=== PATIENT | female | born 1965 | race Caucasian/White ===

== ENCOUNTER 2016-09-05 10:23 | Observation (INO) | payer MEDICARE, OTHER, MEDICAID ==
[2016-09-05] MEDS ORDERED: Sodium Chloride 0.9% 10 ML Syringe FLUSH PRN (10:52)
--- NOTE | 2016-09-05 10:58 | EDM.PDOC ---
ED HPI GENERAL MEDICAL PROBLEM - General Chief Complaint: Chest Pain Stated Complaint: CHEST PAIN Time Seen by Provider: 09/05/16 10:35 Source of Information: Reports: Patient, Old Records History Limitations: Reports: No Limitations - History of Present Illness INITIAL COMMENTS - FREE TEXT/NARRATIVE: Missy comes in with a 3-4 day hx of L anterior chest pains that intermittently radiate into the L upper shoulder. Sxs are positional, aggravated with movement , and not associated with palpitations, sweats, or GI upset. She has a hx of chest wall pain disorder, and has had 2 injections of steroids locally for sxs relief. Her appetite is poor, feels lt headiness, and believes her K may be low. There is a remote hx of chronic ETOHism and pancreatitis, last ETOH beverage 1 week ago. She has taken no meds for sxs relief. Right Knee Pain Score (Numeric/FACES): 6 - Related Data Allergies Allergy/AdvReac Type Severity Reaction Status Date / Time hydromorphone HCl Allergy Intermediate Rash Verified 09/05/16 18:42 [From Dilaudid] adhesive tape Allergy Blisters Verified 09/05/16 18:42 erythromycin base Allergy Nausea and Verified 09/05/16 20:04 Vomiting Home Meds: Home Meds Cholecalciferol (Vitamin D3) [D3-2000] 2,000 cap PO DAILY 04/06/15 [History] Folic Acid 1 mg PO DAILY 04/06/15 [History] Gabapentin [Neurontin] 800 mg PO TID 04/06/15 [History] Multivit with Calcium,Iron,Min [Tab A Zander] 1 tab PO DAILY 04/06/15 [History] Propylene Glycol/Peg 400 [Systane 0.3-0.4% Eye Drops] 1 drop EYEBOTH Q4H PRN 07/17 [History] Thiamine [Vitamin B-1] 100 mg PO DAILY 04/06/15 [History] Omeprazole 20 mg PO BID 04/11/15 [History] DULoxetine [Cymbalta] 60 mg PO DAILY 10/08/15 [History] hydrOXYzine HCl [hydrOXYzine] 25 mg PO Q6H PRN 10/08/15 [History] Ascorbic Acid [Acerola C] 500 mg PO DAILY 09/05/16 [History] Biotin 5,000 mcg PO DAILY 09/05/16 [History] Cyanocobalamin (Vitamin B12) [Vitamin B12] 250 mcg PO DAILY 09/05/16 [History] Polyethylene Glycol 3350 [Miralax] 17 gm PO DAILY PRN 09/05/16 [History] Potassium Chloride [Potassium Chloride Solution] 20 meq PO DAILY 09/05/16 [ History] Past Medical History HEENT History: Reports: Impaired Vision Cardiovascular History: Reports: Hypertension Respiratory History: Reports: Asthma Gastrointestinal History: Reports: Cholelithiasis, GERD, Pancreatitis Other Gastrointestinal History: polyp removal but unknown part; Genitourinary History: Reports: Other (See Below) Other Genitourinary History: dribbles 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 Hematologic History: Reports: None Dermatologic History: Reports: None - Infectious Disease History Infectious Disease History: Reports: Chicken Pox, Measles, Mumps - Past Surgical History Musculoskeletal Surgical History: Reports: Arthroscopic Knee, Shoulder Surgery Social & Family History - Family History Family Medical History: Noncontributory HEENT: Reports: Other (See Below) Other HEENT [facility] History: [facility] Cardiac: Reports: Other (See Below) Other Cardiac Family History: unknown Respiratory: Reports: Other (See Below) Other Respiratory Family Hisory: unknown GI: Reports: Other (See Below) Other GI Family History: unknown OBGYN: Reports: Dysfunctional uterine bleeding Musculoskeletal: Reports: Arthritis Neurological: Reports: Other (See Below) Other Neurological Family History: unknown - Tobacco Use Smoking Status *Q: Current Every Day Smoker Years of Tobacco use: 35 Packs/Tins Daily: 2 Second Hand Smoke Exposure: No - Alcohol Use Days Per Week of Alcohol Use: 3 Number of Drinks Per Day: 3 Total Drinks Per Week: 9 - Recreational Drug Use Recreational Drug Use: No ED ROS GENERAL - Review of Systems Review Of Systems: See Below Constitutional: Reports: Malaise, Decreased Appetite HEENT: Reports: No Symptoms Respiratory: Reports: No Symptoms Cardiovascular: Reports: Chest Pain (hx chest wall pain), Lightheadedness Endocrine: Reports: No Symptoms GI/Abdominal: Reports: Decreased Appetite : Reports: No Symptoms Musculoskeletal: Reports: Other (atypical chest wall pain) Skin: Reports: No Symptoms Neurological: Reports: No Symptoms Psychiatric: Reports: No Symptoms Hematologic/Lymphatic: Reports: No Symptoms Immunologic: Reports: No Symptoms ED EXAM, GENERAL - Physical Exam Exam: See Below Exam Limited By: No Limitations General Appearance: Alert, WD/WN, No Apparent Distress, Anxious Eye Exam: Bilateral Eye: Normal Inspection, PERRL Ears: Normal External Exam Nose: Normal Inspection Throat/Mouth: Normal Inspection, Normal Oropharynx Head: Normocephalic Neck: Normal Inspection, Supple, Non-Tender, Full Range of Motion Respiratory/Chest: No Respiratory Distress, Lungs Clear, Normal Breath Sounds, No Accessory Muscle Use, Other (L anterior costochondral tendereness) Cardiovascular: Regular Rate, Rhythm, No Murmur GI/Abdominal: Normal Bowel Sounds, Soft, Non-Tender, No Organomegaly, No Distention, No Mass (Female) Exam: Deferred Rectal (Female) Exam: Deferred Back Exam: Normal Inspection, Full Range of Motion, Other (mild tenderness L shoulder girdle ) Extremities: Normal Inspection, Normal Range of Motion Neurological: Alert, Oriented, CN II-XII Intact, Normal Cognition, No Motor/ Sensory Deficits Psychiatric: Normal Affect, Normal Mood Skin Exam: Warm, Dry, Intact, Normal Color Lymphatic: No Adenopathy Course - Vital Signs Text/Narrative:: Following assession at the [facility] ED, screening labs noted K 2.0 meq/L, Mg 1.7; Cl 93; other labs noting mild elevations of LFTs; Na 132, BUN 7, Cr 0.8; nonFBS 134 mg%; Alb 2.3 gm; Hgb 13.5 gm, WBC 7,300; UA satisfactory for age. An IV wa started in the LUE, and Missy received 2 push packs of KCl 20 meq and another 40 meq in .45%NS over the next 8 hrs, and 2 mg of MgSO4 push pack. Subsequent labs noted K 2.5 meq/L and Mg 2.7 mg%. She is voiding in mod amounts, without diarrhea, and she did consume a select diet. Missy is admitted to Observation for continued K infusion overnight, and follow up labs in the am. Last Recorded V/S: Last Vital Signs Temp 36.6 C 09/05/16 14:15 Pulse 79 09/05/16 14:15 Resp 18 09/05/16 14:15 BP 130/72 09/05/16 14:15 Pulse Ox 99 09/05/16 14:15 - Orders/Labs/Meds Orders: Active Orders 24 hr Category Date Time Status Potassium Chloride 20 meq Med 09/05/16 16:45 Active Sodium Chloride 0.45% with KCl [1/2 NS with 20 mEq KCl] 1,000 ml IV ONETIME Sodium Chloride 0.9% [Normal Saline] 1,000 ml Med 09/05/16 11:00 Active IV ASDIRECTED Sodium Chloride 0.9% [Normal Saline] 1,000 ml Med 09/05/16 14:45 Active IV ASDIRECTED Sodium Chloride 0.9% [Saline Flush] Med 09/05/16 10:52 Active 10 ml FLUSH ASDIRECTED PRN Peripheral IV Insertion Adult [OM.PC] Routine Oth 09/05/16 10:52 Ordered Medication Orders Sodium Chloride (Normal Saline) 1,000 mls @ 999 mls/hr IV ASDIRECTED DAMIAN Last Infusion: 09/05/16 12:29 Dose: 400 mls/hr Admin: 09/05/16 12:09 Dose: 999 mls/hr Sodium Chloride (Normal Saline) 1,000 mls @ 400 mls/hr IV ASDIRECTED DAMIAN Last Admin: 09/05/16 14:44 Dose: 400 mls/hr Potassium Chloride 20 meq/Potassium Chloride/Sodium Chloride 1,010 mls @ 250 mls/hr IV ONETIME ONE Stop: 09/05/16 20:47 Last Admin: 09/05/16 16:50 Dose: 250 mls/hr Sodium Chloride (Saline Flush) 10 ml FLUSH ASDIRECTED PRN PRN Reason: Keep Vein Open Labs: Laboratory Tests 09/05/16 09/05/16 09/05/16 Range/Units 11:05 11:05 14:15 WBC 7.3 (4.5-12.0) X10-3/uL RBC 4.25 (3.23-5.20) x10(6)uL Hgb 13.5 (11.5-15.5) g/dL Hct 40.1 (30.0-51.3) % MCV 94.4 (80-96) fL MCH 31.9 (27.7-33.6) pg MCHC 33.8 (32.2-35.4) g/dL RDW 15.1 (11.5-15.5) % Plt Count 273 (125-369) X10(3)uL MPV 9.2 (7.4-10.4) fL Add Manual Diff Yes Neutrophils % (Manual) 71 (46-82) % Lymphocytes % (Manual) 22 (13-37) % Monocytes % (Manual) 7 (4-12) % Sodium 132 L (135-145) mmol/L Potassium 2.0 L* 2.1 L* (3.5-5.3) mmol/L Chloride 92 L D (100-110) mmol/L Carbon Dioxide 30 H (23-29) mmol/L BUN 7 (5-20) mg/dL Creatinine 0.8 (0.6-1.3) mg/dL Est Cr Clr Drug Dosing TNP Estimated GFR (MDRD) > 60 (>60) BUN/Creatinine Ratio 8.8 L (9-20) Glucose 134 H (80-116) mg/dL Calcium 8.1 L (8.6-10.2) mg/dL Magnesium (1.8-2.5) mg/dL Total Bilirubin 2.0 H (0.1-1.3) mg/dL AST 34 H D (5-27) IU/L ALT 16 D (14-26) IU/L Alkaline Phosphatase 235 H (56-112) IU/L Total Protein 6.3 (6.0-8.0) g/dL Albumin 2.3 L (3.5-5.2) g/dL Globulin 4.0 g/dL Albumin/Globulin Ratio 0.6 Urine Color (YELLOW) Urine Appearance (CLEAR) Urine pH (5.0-6.5) Ur Specific [place] (1.010-1.025) Urine Protein (NEGATIVE) mg/dL Urine Glucose (UA) (NEGATIVE) mg/dL Urine Ketones (NEGATIVE) mg/dL Urine Occult Blood (NEGATIVE) Urine Nitrite (NEGATIVE) Urine Bilirubin (NEGATIVE) Urine Urobilinogen (NEGATIVE) mg/dL Ur Leukocyte Esterase (NEGATIVE) Urine RBC (0) Urine WBC (0) Ur Squamous Epith Cells (NS,R,O) Urine Bacteria (NS) 09/05/16 09/05/16 09/05/16 Range/Units 16:05 16:05 18:25 WBC (4.5-12.0) X10-3/uL RBC (3.23-5.20) x10(6)uL Hgb (11.5-15.5) g/dL Hct (30.0-51.3) % MCV (80-96) fL MCH (27.7-33.6) pg MCHC (32.2-35.4) g/dL RDW (11.5-15.5) % Plt Count (125-369) X10(3)uL MPV (7.4-10.4) fL Add Manual Diff Neutrophils % (Manual) (46-82) % Lymphocytes % (Manual) (13-37) % Monocytes % (Manual) (4-12) % Sodium (135-145) mmol/L Potassium 2.2 L* (3.5-5.3) mmol/L Chloride (100-110) mmol/L Carbon Dioxide (23-29) mmol/L BUN (5-20) mg/dL Creatinine (0.6-1.3) mg/dL Est Cr Clr Drug Dosing Estimated GFR (MDRD) (>60) BUN/Creatinine Ratio (9-20) Glucose (80-116) mg/dL Calcium (8.6-10.2) mg/dL Magnesium 1.6 L (1.8-2.5) mg/dL Total Bilirubin (0.1-1.3) mg/dL AST (5-27) IU/L ALT (14-26) IU/L Alkaline Phosphatase (56-112) IU/L Total Protein (6.0-8.0) g/dL Albumin (3.5-5.2) g/dL Globulin g/dL Albumin/Globulin Ratio Urine Color Yellow (YELLOW) Urine Appearance Clear (CLEAR) Urine pH 7.0 H (5.0-6.5) Ur Specific [place] 1.010 (1.010-1.025) Urine Protein Negative (NEGATIVE) mg/dL Urine Glucose (UA) Normal (NEGATIVE) mg/dL Urine Ketones Negative (NEGATIVE) mg/dL Urine Occult Blood Negative (NEGATIVE) Urine Nitrite Negative (NEGATIVE) Urine Bilirubin Negative (NEGATIVE) Urine Urobilinogen Normal (NEGATIVE) mg/dL Ur Leukocyte Esterase Negative (NEGATIVE) Urine RBC 0-5 (0) Urine WBC 0-5 (0) Ur Squamous Epith Cells Moderate H (NS,R,O) Urine Bacteria Moderate H (NS) 09/05/16 Range/Units 19:33 WBC (4.5-12.0) X10-3/uL RBC (3.23-5.20) x10(6)uL Hgb (11.5-15.5) g/dL Hct (30.0-51.3) % MCV (80-96) fL MCH (27.7-33.6) pg MCHC (32.2-35.4) g/dL RDW (11.5-15.5) % Plt Count (125-369) X10(3)uL MPV (7.4-10.4) fL Add Manual Diff Neutrophils % (Manual) (46-82) % Lymphocytes % (Manual) (13-37) % Monocytes % (Manual) (4-12) % Sodium (135-145) mmol/L Potassium 2.5 L* (3.5-5.3) mmol/L Chloride (100-110) mmol/L Carbon Dioxide (23-29) mmol/L BUN (5-20) mg/dL Creatinine (0.6-1.3) mg/dL Est Cr Clr Drug Dosing Estimated GFR (MDRD) (>60) BUN/Creatinine Ratio (9-20) Glucose (80-116) mg/dL Calcium (8.6-10.2) mg/dL Magnesium 2.7 H (1.8-2.5) mg/dL Total Bilirubin (0.1-1.3) mg/dL AST (5-27) IU/L ALT (14-26) IU/L Alkaline Phosphatase (56-112) IU/L Total Protein (6.0-8.0) g/dL Albumin (3.5-5.2) g/dL Globulin g/dL Albumin/Globulin Ratio Urine Color (YELLOW) Urine Appearance (CLEAR) Urine pH (5.0-6.5) Ur Specific [place] (1.010-1.025) Urine Protein (NEGATIVE) mg/dL Urine Glucose (UA) (NEGATIVE) mg/dL Urine Ketones (NEGATIVE) mg/dL Urine Occult Blood (NEGATIVE) Urine Nitrite (NEGATIVE) Urine Bilirubin (NEGATIVE) Urine Urobilinogen (NEGATIVE) mg/dL Ur Leukocyte Esterase (NEGATIVE) Urine RBC (0) Urine WBC (0) Ur Squamous Epith Cells (NS,R,O) Urine Bacteria (NS) Meds: Medications Generic Name Dose Route Start Last Admin Trade Name Freq PRN Reason Stop Dose Admin Sodium Chloride 1,000 mls @ 999 mls/hr 09/05/16 11:00 09/05/16 12:29 Normal Saline IV 400 mls/hr ASDIRECTED DAMIAN Infusion Sodium Chloride 1,000 mls @ 400 mls/hr 09/05/16 14:45 09/05/16 14:44 Normal Saline IV 400 mls/hr ASDIRECTED DAMIAN Administration Potassium Chloride 20 meq/ 1,010 mls @ 250 mls/hr 09/05/16 16:45 09/05/16 16: 50 Potassium Chloride/Sodium IV 09/05/16 20:47 250 mls/hr Chloride ONETIME ONE Administration Sodium Chloride 10 ml 09/05/16 10:52 Saline Flush FLUSH ASDIRECTED PRN Keep Vein Open Discontinued Medications Generic Name Dose Route Start Last Admin Trade Name Freq PRN Reason Stop Dose Admin Lipase/Protease/Amylase 4 cap 09/05/16 17:30 09/05/16 17:46 Pancrelipase 5,000 PO 09/05/16 17:31 4 cap ONETIME ONE Administration Potassium Chloride 20 meq/ 100 mls @ 50 mls/hr 09/05/16 11:40 09/05/16 12:28 Premix IV 09/05/16 13:39 50 mls/hr ONETIME ONE Administration Potassium Chloride 20 meq/ 100 mls @ 50 mls/hr 09/05/16 14:34 09/05/16 14:44 Premix IV 09/05/16 16:33 50 mls/hr ONETIME ONE Administration Magnesium Sulfate 2 gm/ Premix 50 mls @ 150 mls/hr 09/05/16 16:52 09/05/16 17 :19 IV 09/05/16 17:11 150 mls/hr ONETIME ONE Administration Thiamine HCl 100 mg/ Sodium 101 mls @ 100 mls/hr 09/05/16 16:56 09/05/16 17: 05 Chloride IV 09/05/16 17:56 Not Given ONETIME ONE Thiamine HCl 100 mg 09/05/16 17:03 09/05/16 17:19 Vitamin B-1 IV 09/05/16 17:04 100 mg ONETIME ONE Administration Departure - Departure Time of Disposition: 20:15 Disposition: Refer to Observation Condition: fair Clinical Impression: Hypokalemia - Discharge Information - Problem List & Annotations (1) Atypical chest pain SNOMED Code(s): 161961847 Code(s): R07.89 - OTHER CHEST PAIN Status: Acute Current Visit: No Annotation/Comment:: Symptomatic cares, and analgesic of choice. (2) Hypokalemia SNOMED Code(s): 74075938 Code(s): E87.6 - HYPOKALEMIA Status: Acute Priority: Low Current Visit : Yes Annotation/Comment:: Probable secondary hyperaldosteronism related to abnormal LFTs may be contributing to hypokalemia, in the absence of vomiting or diarrhea. I dispensed KCl 20 meq bid x 10 days, with follow up by PCP. Depletional hypokalemia with hypomagnesia, managed with IV K replacement and MgSO4 replacement in Observation. - Problem List Review Problem List Initiated/Reviewed/Updated: Yes - My Orders Last 24 Hours: My Active Orders 09/05/16 10:52 Sodium Chloride 0.9% [Saline Flush] 10 ml FLUSH ASDIRECTED PRN Peripheral IV Insertion Adult [OM.PC] Routine 09/05/16 11:00 Sodium Chloride 0.9% [Normal Saline] 1,000 ml IV ASDIRECTED 09/05/16 14:45 Sodium Chloride 0.9% [Normal Saline] 1,000 ml IV ASDIRECTED 09/05/16 16:45 Potassium Chloride 20 meq Sodium Chloride 0.45% with KCl [1/2 NS with 20 mEq KCl] 1,000 ml IV ONETIME - Assessment/Plan Last 24 Hours: My Active Orders 09/05/16 10:52 Sodium Chloride 0.9% [Saline Flush] 10 ml FLUSH ASDIRECTED PRN Peripheral IV Insertion Adult [OM.PC] Routine 09/05/16 11:00 Sodium Chloride 0.9% [Normal Saline] 1,000 ml IV ASDIRECTED 09/05/16 14:45 Sodium Chloride 0.9% [Normal Saline] 1,000 ml IV ASDIRECTED 09/05/16 16:45 Potassium Chloride 20 meq Sodium Chloride 0.45% with KCl [1/2 NS with 20 mEq KCl] 1,000 ml IV ONETIME Plan: Admit to observation.
[2016-09-05] MEDS ORDERED: Sodium Chloride 0.9% 1,000 ML IV SCH ×2 (11:00→14:45)
[2016-09-05] MEDS ORDERED: Potassium Chloride 20 MEQ in Premix Bag 1 BAG IV ONE ×3 (11:40→20:27)
[2016-09-05] MEDS ORDERED: POTASSIUM CHLORIDE IV ONE (16:45)
[2016-09-05] MEDS ORDERED: KCL IV ONE (16:45)
[2016-09-05] MEDS ORDERED: SODIUM CHLORIDE 0.45% IV ONE (16:45)
[2016-09-05] MEDS ORDERED: Magnesium Sulfate/Water 2 GM in Premix Bag 1 BAG IV ONE (16:52)
[2016-09-05] MEDS ORDERED: Thiamine 100 MG in Sodium Chloride 0.9% 100 ML IV ONE (16:56)
[2016-09-05] MEDS ORDERED: Thiamine 200 MG/2 ML MDV IV ONE (17:03)
[2016-09-05] MEDS ORDERED: Amylase/Lipase/Protease 5,000 Unit Cap.CR PO ONE (17:30)
[2016-09-05] MEDS ORDERED: Non-Formulary Medication 1 Each (Propylene Glycol/Peg 400 [Systane 0.3-0.4% Eye Drops] 1 D EYEBOTH PRN (20:55)
[2016-09-05] MEDS ORDERED: HYDROXYZINE HCL 25 MG PO PRN (20:55)
[2016-09-05] MEDS ORDERED: Non-Formulary Medication 1 Each (Gabapentin [Neurontin] 800 MG) PO SCH (21:00)
[2016-09-05] MEDS ORDERED: Non-Formulary Medication 1 Each (Omeprazole [Omeprazole] 20 MG) PO SCH (21:00)
[2016-09-05] MEDS ORDERED: Acetaminophen 325 MG Tab PO ONE (21:02)
[2016-09-05] MEDS: NS + KCl 20mEq/L 1,000 ML IV SCH (21:13)
[2016-09-06] MEDS: NS + KCl 20mEq/L 1,000 ML IV SCH ×3 (04:03→16:56)
[2016-09-06] MEDS ORDERED: Ketorolac 30 MG/ML SDV IVPUSH PRN (08:27)
[2016-09-06] MEDS ORDERED: Potassium Chloride 20 MEQ Tab.ER PO ONE (08:27)
[2016-09-06] MEDS ORDERED: Metoclopramide 10 MG/2 ML SDV IV PRN (08:27)
--- NOTE | 2016-09-06 08:31 | PCM.HP ---
H&P History of Present Illness - General Date of Service: 09/06/16 Admit Problem/Dx: Admission Diagnosis/Problem Admission Diagnosis/Problem Hypokalemia Source of Information: Patient, Old Records History Limitations: Reports: No Limitations - History of Present Illness Initial Comments - Free Text/Narative: 51-year-old female nonspecific chest pain. This pain has been present for more than 3 months. She is being treated for chest wall pain by the pain management. She described this as tight ,going against the shoulder. It does not cause any nausea vomiting or diarrhea,shortness of breath. She came to the emergency room yesterday and was found to have hypokalemia. Despite IV replacement she was too low and admitted therefore for replacement. She has a history of chronic pain syndrome, chronic pancreatitis, history of alcohol abuse , and tobacco. Complains of decreased appetite for the last few weeks. Loose stools. Right Knee Pain Score (Numeric/FACES): 6 Chest Pain Score (Numeric/FACES): 7 - Related Data Allergies/Adverse Reactions: Allergies Allergy/AdvReac Type Severity Reaction Status Date / Time hydromorphone HCl Allergy Intermediate Rash Verified 09/05/16 18:42 [From Dilaudid] adhesive tape Allergy Blisters Verified 09/05/16 18:42 erythromycin base Allergy Nausea and Verified 09/05/16 20:04 Vomiting Home Medications: Home Meds Cholecalciferol (Vitamin D3) [D3-2000] 2,000 cap PO DAILY 04/06/15 [History] Folic Acid 1 mg PO DAILY 04/06/15 [History] Gabapentin [Neurontin] 800 mg PO TID 04/06/15 [History] Multivit with Calcium,Iron,Min [Tab A Zander] 1 tab PO DAILY 04/06/15 [History] Propylene Glycol/Peg 400 [Systane 0.3-0.4% Eye Drops] 1 drop EYEBOTH Q4H PRN 07/17 [History] Thiamine [Vitamin B-1] 100 mg PO DAILY 04/06/15 [History] Omeprazole 20 mg PO BID 04/11/15 [History] DULoxetine [Cymbalta] 60 mg PO DAILY 10/08/15 [History] hydrOXYzine HCl [hydrOXYzine] 25 mg PO Q6H PRN 10/08/15 [History] Ascorbic Acid [Acerola C] 500 mg PO DAILY 09/05/16 [History] Biotin 5,000 mcg PO DAILY 09/05/16 [History] Cyanocobalamin (Vitamin B12) [Vitamin B12] 250 mcg PO DAILY 09/05/16 [History] Polyethylene Glycol 3350 [Miralax] 17 gm PO DAILY PRN 09/05/16 [History] Potassium Chloride [Potassium Chloride Solution] 20 meq PO DAILY 09/05/16 [ History] Past Medical History HEENT History: Reports: Impaired Vision Cardiovascular History: Reports: Hypertension Respiratory History: Reports: Asthma Gastrointestinal History: Reports: Cholelithiasis, GERD, Pancreatitis Other Gastrointestinal History: polyp removal but unknown part; Genitourinary History: Reports: Other (See Below) Other Genitourinary History: dribbles ENERGY TECHNICIAN History: Reports: Dysfunctional Uterine Bleeding Musculoskeletal History: Reports: Arthritis, Back Pain, Chronic Neurological History: Reports: CVA, Neuropathy, Peripheral, TIA Other Neuro History: minor CVA as verbalized by the pt Psychiatric History: Reports: Anxiety, Depression Other Psychiatric History: Pt has been hospitalized at [facility] due to alcoholism, depression, and Rx medication abuse. Hematologic History: Reports: None Dermatologic History: Reports: None - Infectious Disease History Infectious Disease History: Reports: Chicken Pox, Measles, Mumps - Past Surgical History Musculoskeletal Surgical History: Reports: Arthroscopic Knee, Shoulder Surgery Social & Family History - Family History Family Medical History: Noncontributory HEENT: Reports: Other (See Below) Other HEENT Family History: [facility] Cardiac: Reports: Other (See Below) Other Cardiac Family History: unknown Respiratory: Reports: Other (See Below) Other Respiratory Family Hisory: unknown GI: Reports: Other (See Below) Other GI Family History: unknown OBGYN: Reports: Dysfunctional uterine bleeding Musculoskeletal: Reports: Arthritis Neurological: Reports: Other (See Below) Other Neurological Family History: unknown - Tobacco Use Smoking Status *Q: Current Every Day Smoker Years of Tobacco use: 35 Packs/Tins Daily: 0.5 Used Tobacco, but Quit: No Second Hand Smoke Exposure: No - Caffeine Use Caffeine Use: Reports: Soda, Other Other Caffeine Use: milk and water - Alcohol Use Days Per Week of Alcohol Use: 3 Number of Drinks Per Day: 0 Total Drinks Per Week: 0 - Recreational Drug Use Recreational Drug Use: No Drug Use in Last 12 Months: No H&P Review of Systems - Review of Systems: Review Of Systems: ROS reveals no pertinent complaints other than HPI. Exam - Exam Exam: See Below - Vital Signs Vital Signs: Last Vital Signs Temp 98.3 F 09/05/16 20:55 Pulse 83 09/05/16 20:55 Resp 20 09/05/16 20:55 BP 98/70 09/05/16 20:55 Pulse Ox 99 09/05/16 20:55 Weight: 48.534 kg - Exam General: Alert, Oriented, 4 HEENT: PERRLA, Hearing Intact, Mucosa Moist & [place], Nares Patent, Normal Nasal Septum, Posterior Pharynx Clear, Conjunctiva Clear, EOMI, EACs Clear, TMs Clear Neck: Supple, Trachea Midline, 2 Lungs: Clear to Auscultation, Normal Respiratory Effort Cardiovascular: Regular Rate, Regular Rhythm Abdomen: Normal Bowel Sounds, Soft (Female) Exam: Normal External Exam, Normal Speculum Exam, Normal Bimanual Exam Rectal (Female) Exam: Normal Exam, Normal Rectal Tone Back Exam: Normal Inspection, Full Range of Motion, NT Extremities: 3, Normal Inspection, 10 Skin: Warm, Dry, Intact Neurological: Cranial Nerves Intact, Reflexes Equal Bilateral Neuro Extensive - Mental Status: Alert, Oriented x3, Normal Mood/Affect, Normal Cognition Neuro Extensive - Motor, Sensory, Reflexes: CN II-XII Intact, Normal Gait, Normal Reflexes Psychiatric: Alert, Normal Affect, Normal Mood - Patient Data Lab Results last 24 hrs: Laboratory Results - last 24 hr 09/06/16 Range/Units 06:10 Sodium 133 L (135-145) mmol/L Potassium 2.8 L* (3.5-5.3) mmol/L Chloride 106 D (100-110) mmol/L Carbon Dioxide 23 (23-29) mmol/L BUN 6 (5-20) mg/dL Creatinine 0.5 L (0.6-1.3) mg/dL Est Cr Clr Drug Dosing 103.13 mL/min Estimated GFR (MDRD) > 60 (>60) BUN/Creatinine Ratio 12.0 (9-20) Glucose 115 (80-116) mg/dL Calcium 7.2 L (8.6-10.2) mg/dL Result Diagrams: 09/05/16 11:05 09/06/16 06:10 *Q Meaningful Use (ADM) - VTE *Q VTE Criteria *Q: - Stroke *Q Stroke Criteria *Q: - AMI *Q AMI Criteria *Q: - Problem List (1) Hypokalemia SNOMED Code(s): 45917709 ICD Code: E87.6 - HYPOKALEMIA Status: Acute Priority: Low Current Visit : Yes (2) Atypical chest pain SNOMED Code(s): 430457168 ICD Code: R07.89 - OTHER CHEST PAIN Status: Acute Current Visit: No Problem Details: Symptomatic cares, and analgesic of choice. (3) Hyponatremia SNOMED Code(s): 70179812 ICD Code: E87.1 - HYPO-OSMOLALITY AND HYPONATREMIA Status: Acute Current Visit: No (4) Pancreatitis SNOMED Code(s): 68856957 ICD Code: K85.9 - ACUTE PANCREATITIS, UNSPECIFIED * DO NOT USE * Status: Acute Current Visit: No Problem Details: Chronic pancreatitis, with some added elevation of amylase. The lipase level is pending from the lab. She will continue abstinence from ETOH, and keep appt. to obtain follow up Abd US Scan to assess suspected pseudocyst of pancreas later this week. Qualifiers: Chronicity: chronic Pancreatitis type: alcohol induced Qualified Code(s) : K86.0 - Alcohol-induced chronic pancreatitis Problem List Initiated/Reviewed/Updated: Yes Orders Last 24hrs: Active Orders 24 hr Category Date Time Status Adult Diet [DIET] Diet 09/06/16 Lunch Ordered BASIC METABOLIC PANEL,BMP [CHEM] Routine Lab 09/06/16 12:15 Ordered D-DIMER QUANTITATIVE [COAG] Routine Lab 09/06/16 08:30 Ordered TROPONIN I [CHEM] Routine Lab 09/06/16 08:30 Ordered Ascorbic Acid [Acerola C] Med 09/06/16 09:00 Pending 500 mg PO DAILY Biotin [Biotin] Med 09/06/16 09:00 Pending 5,000 mcg PO DAILY Cholecalciferol (Vitamin D3) [D3-2000] Med 09/06/16 09:00 Pending 2,000 cap PO DAILY Cyanocobalamin (Vitamin B12) [Vitamin B12] Med 09/06/16 09:00 Pending 250 mcg PO DAILY DULoxetine [Cymbalta] Med 09/06/16 09:00 Pending 60 mg PO DAILY Folic Acid [Folic Acid] Med 09/06/16 09:00 Pending 1 mg PO DAILY Gabapentin [Neurontin] Med 09/05/16 21:00 Pending 800 mg PO TID Ketorolac [Toradol] Med 09/06/16 08:27 Ordered 30 mg IVPUSH Q6H PRN Metoclopramide [Reglan] Med 09/06/16 08:27 Ordered 10 mg IV Q4H PRN Multivit with Calcium,Iron,Min [Tab A Zander] Med 09/06/16 09:00 Pending 1 tab PO DAILY NS + KCl 20mEq/L [Normal Saline with 20 mEq KCl] 1,000 Med 09/05/16 20:30 Active ml IV ASDIRECTED Omeprazole [Omeprazole] Med 09/05/16 21:00 Pending 20 mg PO BID Polyethylene Glycol 3350 [Miralax] Med 09/05/16 20:55 Pending 17 gm PO DAILY PRN Potassium Chloride [Klor-Con M20] Med 09/06/16 08:27 Once 40 meq PO ONETIME ONE Potassium Chloride [Potassium Chloride Solution] Med 09/06/16 09:00 Pending 20 meq PO DAILY Propylene Glycol/Peg 400 [Systane 0.3-0.4% Eye Drops] Med 09/05/16 20:55 Pending 1 drop EYEBOTH Q4H PRN Thiamine [Vitamin B-1] Med 09/06/16 09:00 Pending 100 mg PO DAILY hydrOXYzine HCl [hydrOXYzine] Med 09/05/16 20:55 Pending 25 mg PO Q6H PRN Resuscitation Status Routine Resus Stat 09/06/16 08:27 Ordered Medication Orders Potassium Chloride/Sodium Chloride (Normal Saline With 20 Meq Kcl) 1,000 mls @ 150 mls/hr IV ASDIRECTED DAMIAN Last Admin: 09/06/16 04:03 Dose: 150 mls/hr Infusion: 09/06/16 03:54 Dose: 150 mls/hr Admin: 09/05/16 21:13 Dose: 150 mls/hr Ketorolac Tromethamine (Toradol) 30 mg IVPUSH Q6H PRN PRN Reason: Breakthrough Pain Stop: 09/11/16 08:28 Metoclopramide HCl (Reglan) 10 mg IV Q4H PRN PRN Reason: Vomiting Non-Formulary Medication (Ascorbic Acid [Acerola C]) 500 mg PO DAILY DAMIAN Non-Formulary Medication (Biotin [Biotin]) 5,000 mcg PO DAILY DAMIAN Non-Formulary Medication (Cholecalciferol (Vitamin D3) [D3-2000]) 2,000 cap PO DAILY DAMIAN Non-Formulary Medication (Cyanocobalamin (Vitamin B12) [Vitamin B12]) 250 mcg PO DAILY DAMIAN Non-Formulary Medication (Duloxetine [Cymbalta]) 60 mg PO DAILY DAMIAN Non-Formulary Medication (Folic Acid [Folic Acid]) 1 mg PO DAILY DAMIAN Non-Formulary Medication (Gabapentin [Neurontin]) 800 mg PO TID DAMIAN Non-Formulary Medication (Multivit With Calcium,Iron,Min [Tab A Zander]) 1 tab PO DAILY DAMIAN Non-Formulary Medication (Omeprazole [Omeprazole]) 20 mg PO BID DAMIAN Non-Formulary Medication (Polyethylene Glycol 3350 [Miralax]) 17 gm PO DAILY PRN PRN Reason: Constipation Non-Formulary Medication (Potassium Chloride [Potassium Chloride Solution]) 20 meq PO DAILY DAMIAN Non-Formulary Medication (Propylene Glycol/Peg 400 [Systane 0.3-0.4% Eye Drops] ) 1 drop EYEBOTH Q4H PRN PRN Reason: Dry Eyes Non-Formulary Medication (Thiamine [Vitamin B-1]) 100 mg PO DAILY DAMIAN Non-Formulary Medication (Hydroxyzine Hcl [Hydroxyzine]) 25 mg PO Q6H PRN PRN Reason: Itching Potassium Chloride (Klor-Con M20) 40 meq PO ONETIME ONE Stop: 09/06/16 08:28 Sodium Chloride (Saline Flush) 10 ml FLUSH ASDIRECTED PRN PRN Reason: Keep Vein Open Assessment/Plan Comment:: My plan is to obtain a troponin and d-dimer for completeness purposes. Rule out otehr causes of pain. Given IV Toradol to control it.. I will replace her potassium with oral potassium replacement, repeat a BMP at noon,possibly discharge after that. To followup with gastrology and pain clinic as well as her PCP at the clinic
[2016-09-06] MEDS ORDERED: Non-Formulary Medication 1 Each (Duloxetine [Cymbalta] 60 MG) PO SCH (09:00)
[2016-09-06] MEDS ORDERED: Non-Formulary Medication 1 Each (Biotin [Biotin] 5,000 MCG) PO SCH (09:00)
[2016-09-06] MEDS ORDERED: CYANOCOBALAMIN 250 MCG PO SCH (09:00)
[2016-09-06] MEDS ORDERED: ASCORBIC ACID 500 MG PO SCH (09:00)
[2016-09-06] MEDS ORDERED: MULTIVIT WITH CALCIUM IRON MIN PO SCH (09:00)
[2016-09-06] MEDS ORDERED: POTASSIUM CHLORIDE 20 MEQ PO SCH (09:00)
[2016-09-06] MEDS ORDERED: THIAMINE 100 MG PO SCH (09:00)
[2016-09-06] MEDS ORDERED: Non-Formulary Medication 1 Each (Folic Acid [Folic Acid] 1 MG) PO SCH (09:00)
[2016-09-06] MEDS ORDERED: CHOLECALCIFEROL PO SCH (09:00)
[2016-09-06] MEDS ORDERED: Iopamidol 755 Mg/ML 75 ML Bottle IV ONE (11:43)
[2016-09-06] MEDS ORDERED: fentaNYL 100 MCG/2 ML SDV IVPUSH PRN (13:14)
[2016-09-06 16:20] VITALS: BP 107/74
--- NOTE | 2016-09-06 18:13 | DISCH ---
DISCHARGE DATE: 09/06/2016 REASON FOR ADMISSION: 1. Nonspecific chest pain. 2. Hypokalemia. 3. History of alcohol abuse. TRANSFER DIAGNOSES: 1. Hypokalemia, persistent. 2. Hyponatremia. 3. Pancreatic mass. 4. Chest pain. BRIEF HISTORY AND HOSPITAL COURSE: A 51-year-old female, who came in yesterday with nonspecific chest pain for a week, chronic previously, but gotten worse recently associated with decreased oral intake, weakness, and low potassium. Despite IV fluid resuscitation and replacement, she still had a potassium of 2.5 today. The chest pain persisted and I ordered a CT that does reveal possible malignancy on the pancreas, head, and the stomach wall and even possibly with mass lesions in the liver. As such, I have deemed it appropriate to transfer to [facility] for further investigations and appropriate treatment. I spent 35 minutes in discharge of this patient. /[id number] GÉNESIS/GERRY
--- NOTE | 2016-09-07 09:27 | PN ---
DATE SEEN: 09/06/2016 ADDENDUM: I saw this patient early in the morning, but I did a CT scan because of the high D-dimer. The CT scan has revealed some possibility of malignancy in the pancreas and stomach wall that could account for some of her symptoms. She is unable to swallow or keep anything down. I had called [facility] and spoke with the hospitalist rn telephonic, and I have suggested that we send the patient there for further treatment and a consultation with Gastroenterology and appropriate services. Her potassium at noon was 2.5 despite IV fluid resuscitation that has potassium in it. I will transfer her there today. /[id number] GÉNESIS/GERRY
== END 2016-09-06 17:15 ==
LOC: FB.ED 10:23 → FB.MS 20:22 → FB.ED 20:23 → FB.MS 20:24
PROVIDERS: ADMIT Family Medicine; ATTEND Family Medicine
DX: E87.6 Hypokalemia (principal); R07.89 Other chest pain; E87.1 Hypo-osmolality and hyponatremia; K86.0 Alcohol-induced chronic pancreatitis; Z88.1 Allergy status to other antibiotic agents; Z91.09 Other allergy status, other than to drugs and biological substances; Z88.8 Allergy status to other drugs, medicaments and biological substances; Z79.899 Other long term (current) drug therapy; I10 Essential (primary) hypertension; K21.9 Gastro-esophageal reflux disease without esophagitis; J45.909 Unspecified asthma, uncomplicated; F41.9 Anxiety disorder, unspecified; F32.9 Major depressive disorder, single episode, unspecified; Z98.890 Other specified postprocedural states; F17.210 Nicotine dependence, cigarettes, uncomplicated
CPT/HCPCS: 36415; 71275; 80048; 80053; 81001; 83735; 84132; 84484; 85025; 85379; 96365; 96366; 96368; 96375; 99217; 99218; 99285; A9270; G0378; J1885; J3010; J3411; J3475; J3480; J7040; Q9967; 96367

== ENCOUNTER 2016-09-10 17:50 | Emergency (ER) | payer MEDICARE, OTHER, MEDICAID ==
[2016-09-10 18:06] VITALS: BP 103/91
[2016-09-10] MEDS ORDERED: Potassium Chloride 20 MEQ Tab.ER PO ONE (19:33)
--- NOTE | 2016-09-10 23:55 | ER ---
DATE SEEN: 09/10/2016 HISTORY OF PRESENT ILLNESS: The patient is a 51-year-old female who was just discharged from the hospital in [place] and she was there for 3 days for severe acute pancreatitis. She has history of pancreatitis. She was home yesterday and seemed to be okay yesterday and then today said she started having swelling in her lower extremities. Denies any shortness of breath. No other constitutional symptoms. MEDICATIONS: 1. Hydroxyzine. 2. MiraLAX. 3. Omeprazole. 4. Neurontin. 5. Cymbalta. ALLERGIES: Hydromorphone and erythromycin. PAST MEDICAL HISTORY: Atypical chest pain, cholecystitis, chronic pancreatitis, hypokalemia, hyponatremia, elevated LFTs, alcoholic hepatitis, and back pain. REVIEW OF SYSTEMS: CONSTITUTIONAL: No fever. PHYSICAL EXAMINATION: VITAL SIGNS: Afebrile, 36.8, pulse 101, blood pressure 103/91, respiratory rate 18, and 97% on room air. GENERAL: She is in no apparent acute distress. LUNGS: Clear to auscultation. HEART: Regular rate and rhythm. ABDOMEN: Soft. EXTREMITIES: A 1+ pitting edema. LABORATORY DATA: Her potassium is low at 2.7, creatinine is 0.5, and hemoglobin is 11.4. WBC is 6.2. EMERGENCY DEPARTMENT COURSE: This patient received a K-Dur 40 mEq p.o. ASSESSMENT: 1. Chronic pancreatitis. 2. Elevated LFTs. 3. Hypokalemia. PLAN: Continue current medications, elevate legs, Gary wraps applied to leg, followup with primary physician on Monday for potassium recheck. /[id number] MELISSA/GERRY
== END 2016-09-10 20:05 | disposition home or self-care (01) ==
LOC: FB.ED 17:50
DX: K86.1 Other chronic pancreatitis (principal); R79.89 Other specified abnormal findings of blood chemistry; E87.6 Hypokalemia; Z88.1 Allergy status to other antibiotic agents; Z88.5 Allergy status to narcotic agent
CPT/HCPCS: 36415; 80053; 85025; 99284; A9270; 99283

== ENCOUNTER 2016-10-18 19:16 | Inpatient (IN) | payer MEDICARE, OTHER, MEDICAID ==
[2016-10-18] MEDS ORDERED: Sodium Chloride 0.9% 1,000 ML IV SCH ×3 (19:30→20:00)
[2016-10-18] MEDS: Sodium Chloride 0.9% 10 ML Syringe FLUSH PRN (19:36)
[2016-10-18] MEDS ORDERED: Sodium Chloride 0.9% 10 ML Syringe FLUSH PRN (19:44)
--- NOTE | 2016-10-18 20:07 | EDM.PDOC ---
ED HPI GENERAL MEDICAL PROBLEM - General Chief Complaint: Gastrointestinal Problem Stated Complaint: COUGHING UP BLOOD Time Seen by Provider: 10/18/16 19:16 Source of Information: Reports: Patient, EMS History Limitations: Reports: No Limitations - History of Present Illness INITIAL COMMENTS - FREE TEXT/NARRATIVE: c/o bloody stools, hematemesis, dizzy and weak x 2d pt is poor historian uses a canes, says she has been having a hard time walking, called EMS as she was dizzy and unable to get up, BP 89/59 and HR 140 as per EMS, BP 90/70 and HR 125 on arrival at ED, HR 96 when EKG obtained pt alert and conversant, very poor memory for details h/o alcohol abuse, drinks whiskey, last drink per pt 1w ago, "could only drink 1 /2 glass" before pain in epigastrium, has pain in epigastrium with emesis, not at rest, abd minimally tender now pt thinks she may have been admitted to a hospital in past yr but not sure where or when, as per EHR she was admitted 09/06 to 09/09 to [facility] with dx pancreatic mass on CT and possible cancer which apparently turned out to be a pseudocyst, a f/u CT of abd/pelvis on 10-10-16 showed pseudocyst of body enlarging, pseudocyst of tail that was new, ASD, fatty liver, thick wall of sigmoid, possible thick wall of stomach PSH includes choly, appy PCP had been Deedee Frost, now started seeing Dr Aguilar recent labs with hgb 11.4 (1m ago), INR 1.22 (02-16-16), na 139, K 2.7, BUN 1, creat 0.5 (1m ago)), d-dimer 3521 of uncertain clinical significance (09-06-16), albumin (1m ago), AST 60 and AST 25 (1m ago), amylase 901 (9m ago), lipase 533 ( 1y ago), CRP 1.7 (9m ago) not on ASA or anticoagulants, has a bottle of ibuprofen 600 mg q8h prn, pt says she has not taken any in past 2d pt has had several bloody BMs today and yesterday, does not remember how many, had hematemesis of dark blood, also not sure how many, dark red blood present in perianal area, no emesis here Upper Abdomen Pain Score (Numeric/FACES): 7 - Related Data Allergies Allergy/AdvReac Type Severity Reaction Status Date / Time hydromorphone HCl Allergy Intermediate Rash Verified 10/18/16 19:21 [From Dilaudid] adhesive tape Allergy Blisters Verified 10/18/16 19:21 erythromycin base Allergy Nausea and Verified 10/18/16 19:21 Vomiting Home Meds: Home Meds Gabapentin [Neurontin] 800 mg PO TID 04/06/15 [History] Thiamine [Vitamin B-1] 100 mg PO DAILY 04/06/15 [History] Omeprazole 20 mg PO BID 04/11/15 [History] hydrOXYzine HCl [hydrOXYzine] 25 mg PO Q6H PRN 10/08/15 [History] Biotin 5,000 mcg PO DAILY 09/05/16 [History] Ibuprofen 600 mg PO TID 09/06/16 [History] Potassium Chloride 20 meq PO TID 09/06/16 [History] Acetaminophen/Diphenhydramine [Mapap PM] 2 each PO BEDTIME 10/18/16 [History] Gabapentin [Neurontin] 300 mg PO TID 10/18/16 [History] Lipase/Protease/Amylase [Zenpep DR 20,000 Unit] 1 each PO TIDMEALS 10/18/16 [ History] Meclizine [Antivert] 12.5 mg PO Q4HR PRN 10/18/16 [History] Megestrol [Megace 40 MG/ML Susp] 10 ml PO DAILY 10/18/16 [History] Pantoprazole [ProTONIX] 40 mg PO ACBREAKFAST 10/18/16 [History] Sucralfate 1 gm PO QID 10/18/16 [History] traMADol [Ultram] 50 mg PO Q6H PRN 10/18/16 [History] Past Medical History HEENT History: Reports: Impaired Vision Cardiovascular History: Reports: Hypertension Respiratory History: Reports: Asthma Gastrointestinal History: Reports: Cholelithiasis, GERD, Pancreatitis Other Gastrointestinal History: polyp removal but unknown part; Genitourinary History: Reports: Other (See Below) Other Genitourinary History: dribbles 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 Hematologic History: Reports: None Dermatologic History: Reports: None - Infectious Disease History Infectious Disease History: Reports: Chicken Pox, Measles, Mumps - Past Surgical History Musculoskeletal Surgical History: Reports: Arthroscopic Knee, Shoulder Surgery Social & Family History - Family History Family Medical History: Noncontributory HEENT: Reports: Other (See Below) Other HEENT Family History: [facility] Cardiac: Reports: Other (See Below) Other Cardiac Family History: unknown Respiratory: Reports: Other (See Below) Other Respiratory Family Hisory: unknown GI: Reports: Other (See Below) Other GI Family History: unknown OBGYN: Reports: Dysfunctional uterine bleeding Musculoskeletal: Reports: Arthritis Neurological: Reports: Other (See Below) Other Neurological Family History: unknown - Tobacco Use Smoking Status *Q: Current Every Day Smoker Years of Tobacco use: 35 Packs/Tins Daily: 0.5 Used Tobacco, but Quit: No Second Hand Smoke Exposure: No - Caffeine Use Caffeine Use: Reports: Soda, Other Other Caffeine Use: milk and water - Alcohol Use Days Per Week of Alcohol Use: 3 Number of Drinks Per Day: 0 Total Drinks Per Week: 0 - Recreational Drug Use Recreational Drug Use: No Drug Use in Last 12 Months: No ED ROS GENERAL - Review of Systems Review Of Systems: See Below Constitutional: Reports: Weakness, Fatigue. Denies: Fever, Chills, Malaise, Night Sweats, Diaphoresis HEENT: Reports: No Symptoms Respiratory: Reports: Other (rare cough) Cardiovascular: Reports: Lightheadedness. Denies: Chest Pain Endocrine: Reports: No Symptoms GI/Abdominal: Reports: Abdominal Pain, Bloody Stool, Diarrhea, Hematochezia, Nausea, Vomiting : Reports: No Symptoms Musculoskeletal: Reports: No Symptoms Skin: Reports: No Symptoms Neurological: Reports: No Symptoms Psychiatric: Reports: No Symptoms Hematologic/Lymphatic: Reports: No Symptoms Immunologic: Reports: No Symptoms ED EXAM, GENERAL - Physical Exam Exam: See Below Exam Limited By: Altered Mental Status General Appearance: Alert Ears: Normal External Exam, Hearing Grossly Normal Nose: Normal Inspection Throat/Mouth: Normal Oropharynx, Normal Voice, No Airway Compromise Head: Atraumatic, Normocephalic Neck: Normal Inspection, Supple, Non-Tender, Full Range of Motion Respiratory/Chest: No Respiratory Distress, Lungs Clear, Normal Breath Sounds, No Accessory Muscle Use, Chest Non-Tender Cardiovascular: No Edema, No JVD, Other (2/6 DEE at LSB, tachy, regular, quiet precordium) GI/Abdominal: Normal Bowel Sounds, Soft, No Organomegaly, No Distention, No Mass , Other (perhaps slight tender at epigastrium and LUQ) Rectal (Female) Exam: Other (dark red blood in perianal area, rectal vault empty , normal rectal tone, no hemorrhoids) Back Exam: Normal Inspection, Full Range of Motion. No: CVA Tenderness (R), CVA Tenderness (L) Extremities: Normal Inspection, Normal Range of Motion, Non-Tender, No Pedal Edema Neurological: Alert, Oriented, No Motor/Sensory Deficits Psychiatric: Normal Affect, Normal Mood Skin Exam: Warm Lymphatic: No Adenopathy Course - Vital Signs Last Recorded V/S: Last Vital Signs Temp 36.8 C 10/20/16 08:00 Pulse 76 10/20/16 14:16 Resp 18 10/20/16 11:26 BP 105/72 10/20/16 14:16 Pulse Ox 100 10/20/16 14:16 - Orders/Labs/Meds Orders: Medication Orders Sodium Chloride (Normal Saline) 250 mls @ 30 mls/hr IV ASDIRECTED [facility] Last Admin: 10/19/16 23:50 Dose: 30 mls/hr Admin: 10/19/16 20:00 Dose: 30 mls/hr Admin: 10/19/16 02:38 Dose: 30 mls/hr Admin: 10/18/16 23:00 Dose: 30 mls/hr Sodium Chloride (Normal Saline) 1,000 mls @ 125 mls/hr IV ASDIRECTED [facility] Last Admin: 10/20/16 11:32 Dose: 125 mls/hr Infusion: 10/20/16 11:32 Dose: 125 mls/hr Admin: 10/20/16 04:54 Dose: 125 mls/hr Infusion: 10/19/16 21:30 Dose: 125 mls/hr Admin: 10/19/16 13:30 Dose: 125 mls/hr Pantoprazole Sodium 80 mg/ (Sodium Chloride) 100 mls @ 10 mls/hr IV Q10H DAMIAN Last Admin: 10/20/16 12:26 Dose: 10 mls/hr Morphine Sulfate (Morphine) 2 mg IVPUSH Q4H PRN PRN Reason: Pain Last Admin: 10/20/16 08:31 Dose: 2 mg Admin: 10/19/16 23:47 Dose: 2 mg Admin: 10/19/16 19:40 Dose: 2 mg Admin: 10/19/16 13:38 Dose: 2 mg Admin: 10/19/16 02:22 Dose: 2 mg Admin: 10/18/16 22:28 Dose: 2 mg Ondansetron HCl (Zofran) 4 mg IVPUSH Q6H PRN PRN Reason: Nausea/Vomiting Last Admin: 10/20/16 07:56 Dose: 4 mg Admin: 10/20/16 00:21 Dose: 4 mg Sodium Chloride (Saline Flush) 10 ml FLUSH ASDIRECTED PRN PRN Reason: Keep Vein Open Last Admin: 10/20/16 00:26 Dose: 10 ml Admin: 10/20/16 00:21 Dose: 10 ml Admin: 10/18/16 19:36 Dose: 10 ml Sodium Chloride (Saline Flush) 10 ml FLUSH ASDIRECTED PRN PRN Reason: Keep Vein Open Labs: Laboratory Tests 10/18/16 10/18/16 10/18/16 Range/Units 19:30 19:31 19:45 WBC 8.6 (4.5-12.0) X10-3/uL RBC 1.83 L (3.23-5.20) x10(6)uL Hgb 5.9 L* D (11.5-15.5) g/dL Hct 17.6 L* D (30.0-51.3) % MCV 96.3 H (80-96) fL MCH 32.5 (27.7-33.6) pg MCHC 33.7 (32.2-35.4) g/dL RDW 17.8 H (11.5-15.5) % Plt Count 251 (125-369) X10(3)uL MPV 8.9 (7.4-10.4) fL Neut % (Auto) 68.7 (46-82) % Lymph % (Auto) 25.5 (13-37) % Ward % (Auto) 4.0 (4-12) % Eos % (Auto) 1 (1.0-5.0) % Baso % (Auto) 1 (0-2) % Neut # (Auto) 5.9 (1.6-8.3) # Lymph # (Auto) 2.2 (0.6-5.0) # Ward # (Auto) 0.3 (0.0-1.3) # Eos # (Auto) 0.1 (0.0-0.8) # Baso # (Auto) 0.1 (0.0-0.2) # Sodium (135-145) mmol/L Potassium (3.5-5.3) mmol/L Chloride (100-110) mmol/L Carbon Dioxide (23-29) mmol/L BUN (5-20) mg/dL Creatinine (0.6-1.3) mg/dL Est Cr Clr Drug Dosing mL/min Estimated GFR (MDRD) (>60) BUN/Creatinine Ratio (9-20) Glucose (80-116) mg/dL Lactic Acid (0.5-2.2) mmol/L Calcium (8.6-10.2) mg/dL Magnesium (1.8-2.5) mg/dL Total Bilirubin (0.1-1.3) mg/dL AST (5-27) IU/L ALT (14-26) IU/L Alkaline Phosphatase (56-112) IU/L Creatine Kinase (60-160) IU/L Troponin I < 0.01 L (0.02-0.06) NG/ML C-Reactive Protein (0.0-1.0) mg/dL Total Protein (6.0-8.0) g/dL Albumin (3.5-5.2) g/dL Globulin g/dL Albumin/Globulin Ratio Amylase (28-100) U/L Lipase 561 Urine Color (YELLOW) Urine Appearance (CLEAR) Urine pH (5.0-6.5) Ur Specific [place] (1.010-1.025) Urine Protein (NEGATIVE) mg/dL Urine Glucose (UA) (NEGATIVE) mg/dL Urine Ketones (NEGATIVE) mg/dL Urine Occult Blood (NEGATIVE) Urine Nitrite (NEGATIVE) Urine Bilirubin (NEGATIVE) Urine Urobilinogen (NEGATIVE) mg/dL Ur Leukocyte Esterase (NEGATIVE) Urine RBC (0) Urine WBC (0) Ur Squamous Epith Cells (NS,R,O) Urine Bacteria (NS) Blood Type Gel Antibody Screen Crossmatch 10/18/16 10/18/16 10/18/16 Range/Units 19:45 19:45 19:45 WBC (4.5-12.0) X10-3/uL RBC (3.23-5.20) x10(6)uL Hgb (11.5-15.5) g/dL Hct (30.0-51.3) % MCV (80-96) fL MCH (27.7-33.6) pg MCHC (32.2-35.4) g/dL RDW (11.5-15.5) % Plt Count (125-369) X10(3)uL MPV (7.4-10.4) fL Neut % (Auto) (46-82) % Lymph % (Auto) (13-37) % Ward % (Auto) (4-12) % Eos % (Auto) (1.0-5.0) % Baso % (Auto) (0-2) % Neut # (Auto) (1.6-8.3) # Lymph # (Auto) (0.6-5.0) # Ward # (Auto) (0.0-1.3) # Eos # (Auto) (0.0-0.8) # Baso # (Auto) (0.0-0.2) # Sodium 137 (135-145) mmol/L Potassium 2.9 L (3.5-5.3) mmol/L Chloride 105 (100-110) mmol/L Carbon Dioxide 26 (23-29) mmol/L BUN 19 D (5-20) mg/dL Creatinine 0.5 L (0.6-1.3) mg/dL Est Cr Clr Drug Dosing 88.68 mL/min Estimated GFR (MDRD) > 60 (>60) BUN/Creatinine Ratio 38.0 H (9-20) Glucose 158 H (80-116) mg/dL Lactic Acid 1.8 (0.5-2.2) mmol/L Calcium 7.7 L (8.6-10.2) mg/dL Magnesium 1.5 L (1.8-2.5) mg/dL Total Bilirubin 0.6 (0.1-1.3) mg/dL AST 13 D (5-27) IU/L ALT 9 L D (14-26) IU/L Alkaline Phosphatase 146 H (56-112) IU/L Creatine Kinase 18 L (60-160) IU/L Troponin I (0.02-0.06) NG/ML C-Reactive Protein 0.7 (0.0-1.0) mg/dL Total Protein 4.7 L (6.0-8.0) g/dL Albumin 2.1 L (3.5-5.2) g/dL Globulin 2.6 g/dL Albumin/Globulin Ratio 0.8 Amylase 114 H (28-100) U/L Lipase Urine Color (YELLOW) Urine Appearance (CLEAR) Urine pH (5.0-6.5) Ur Specific [place] (1.010-1.025) Urine Protein (NEGATIVE) mg/dL Urine Glucose (UA) (NEGATIVE) mg/dL Urine Ketones (NEGATIVE) mg/dL Urine Occult Blood (NEGATIVE) Urine Nitrite (NEGATIVE) Urine Bilirubin (NEGATIVE) Urine Urobilinogen (NEGATIVE) mg/dL Ur Leukocyte Esterase (NEGATIVE) Urine RBC (0) Urine WBC (0) Ur Squamous Epith Cells (NS,R,O) Urine Bacteria (NS) Blood Type AB NEGATIVE Gel Antibody Screen Negative Crossmatch See Detail 10/18/16 Range/Units 20:07 WBC (4.5-12.0) X10-3/uL RBC (3.23-5.20) x10(6)uL Hgb (11.5-15.5) g/dL Hct (30.0-51.3) % MCV (80-96) fL MCH (27.7-33.6) pg MCHC (32.2-35.4) g/dL RDW (11.5-15.5) % Plt Count (125-369) X10(3)uL MPV (7.4-10.4) fL Neut % (Auto) (46-82) % Lymph % (Auto) (13-37) % Ward % (Auto) (4-12) % Eos % (Auto) (1.0-5.0) % Baso % (Auto) (0-2) % Neut # (Auto) (1.6-8.3) # Lymph # (Auto) (0.6-5.0) # Ward # (Auto) (0.0-1.3) # Eos # (Auto) (0.0-0.8) # Baso # (Auto) (0.0-0.2) # Sodium (135-145) mmol/L Potassium (3.5-5.3) mmol/L Chloride (100-110) mmol/L Carbon Dioxide (23-29) mmol/L BUN (5-20) mg/dL Creatinine (0.6-1.3) mg/dL Est Cr Clr Drug Dosing mL/min Estimated GFR (MDRD) (>60) BUN/Creatinine Ratio (9-20) Glucose (80-116) mg/dL Lactic Acid (0.5-2.2) mmol/L Calcium (8.6-10.2) mg/dL Magnesium (1.8-2.5) mg/dL Total Bilirubin (0.1-1.3) mg/dL AST (5-27) IU/L ALT (14-26) IU/L Alkaline Phosphatase (56-112) IU/L Creatine Kinase (60-160) IU/L Troponin I (0.02-0.06) NG/ML C-Reactive Protein (0.0-1.0) mg/dL Total Protein (6.0-8.0) g/dL Albumin (3.5-5.2) g/dL Globulin g/dL Albumin/Globulin Ratio Amylase (28-100) U/L Lipase Urine Color Yellow (YELLOW) Urine Appearance Slightly cloudy (CLEAR) Urine pH 6.0 (5.0-6.5) Ur Specific [place] 1.020 (1.010-1.025) Urine Protein Trace (NEGATIVE) mg/dL Urine Glucose (UA) Normal (NEGATIVE) mg/dL Urine Ketones Negative (NEGATIVE) mg/dL Urine Occult Blood Negative (NEGATIVE) Urine Nitrite Negative (NEGATIVE) Urine Bilirubin Small H (NEGATIVE) Urine Urobilinogen 1 H (NEGATIVE) mg/dL Ur Leukocyte Esterase Large H (NEGATIVE) Urine RBC 0-5 (0) Urine WBC 30-40 H (0) Ur Squamous Epith Cells Many H (NS,R,O) Urine Bacteria Moderate H (NS) Blood Type Gel Antibody Screen Crossmatch Meds: Medications Generic Name Dose Route Start Last Admin Trade Name Sabas PRN Reason Stop Dose Admin Sodium Chloride 250 mls @ 30 mls/hr 10/18/16 22:30 10/19/16 23:50 Normal Saline IV 30 mls/hr ASDIRECTED DAMIAN Administration Sodium Chloride 1,000 mls @ 125 mls/hr 10/19/16 12:15 10/20/16 11:32 Normal Saline IV 125 mls/hr ASDIRECTED DAMIAN Administration Pantoprazole Sodium 80 mg/ 100 mls @ 10 mls/hr 10/20/16 12:00 10/20/16 12:26 Sodium Chloride IV 10 mls/hr Q10H DAMIAN Administration Morphine Sulfate 2 mg 10/18/16 22:01 10/20/16 08:31 Morphine IVPUSH 2 mg Q4H PRN Administration Pain Ondansetron HCl 4 mg 10/20/16 00:02 10/20/16 07:56 Zofran IVPUSH 4 mg Q6H PRN Administration Nausea/Vomiting Sodium Chloride 10 ml 10/18/16 19:34 10/20/16 00:26 Saline Flush FLUSH 10 ml ASDIRECTED PRN Administration Keep Vein Open Sodium Chloride 10 ml 10/18/16 19:44 Saline Flush FLUSH ASDIRECTED PRN Keep Vein Open Discontinued Medications Generic Name Dose Route Start Last Admin Trade Name Sabas PRN Reason Stop Dose Admin Bisacodyl 10 mg 10/19/16 16:00 10/19/16 16:51 Dulcolax PO 10/19/16 16:01 10 mg ONETIME ONE Administration Sodium Chloride 1,000 mls @ 999 mls/hr 10/18/16 19:30 10/18/16 19:30 Normal Saline IV 999 mls/hr ASDIRECTED DAMIAN Administration Sodium Chloride 1,000 mls @ 999 mls/hr 10/18/16 19:45 10/18/16 19:40 Normal Saline IV 999 mls/hr ASDIRECTED DAMIAN Administration Sodium Chloride 1,000 mls @ 2,000 mls/hr 10/18/16 20:00 Normal Saline IV ASDIRECTED DAMIAN Lidocaine HCl 100 mg 10/20/16 10:40 Xylocaine 2% IVPUSH 10/20/16 10:41 .STK-MED ONE Midazolam HCl 4 mg 10/20/16 10:40 Versed 1 Mg/Ml IV 10/20/16 10:41 .STK-MED ONE Ondansetron HCl 4 mg 10/18/16 20:46 10/18/16 21:03 Zofran IVPUSH 10/18/16 20:47 4 mg ONETIME ONE Administration Pantoprazole Sodium 80 mg 10/20/16 11:16 10/20/16 11:42 Protonix Iv IVPUSH 10/20/16 11:17 80 mg .BOLUS ONE Administration Polyethylene Glycol 238 gm 10/19/16 14:00 10/19/16 14:00 Miralax PO 10/19/16 14:01 238 gm ONETIME ONE Administration Potassium Chloride 40 meq 10/18/16 21:32 10/18/16 21:57 Klor-Con M20 PO 10/18/16 21:33 40 meq ONETIME ONE Administration Potassium Chloride 40 meq 10/19/16 02:00 10/19/16 02:17 Klor-Con M20 PO 10/19/16 02:01 40 meq ONETIME ONE Administration Propofol 240 mg 10/20/16 10:40 Diprivan 20 Ml IV 10/20/16 10:41 .STK-MED ONE - Re-Assessments/Exams Free Text/Narrative Re-Assessment/Exam: 10/18/16 21:37 pt is a [place] pt and was admitted to [facility] last month, PCP Dr Aguilar, d/w Dr Castellanos who will scope pt tomorrow, pt has remained stable, no emesis or stool in 2.5h in ED. Likely has gastric ulcer with rapid transit time , cannot exclude LGI bleed. Esophageal varicosity unlikely given hx. Departure - Departure Time of Disposition: 21:51 Disposition: Admitted As Inpatient 67 Condition: Fair Clinical Impression: Acute upper gastrointestinal bleeding, Hypomagnesemia, Malnutrition, Hypoalbuminemia, Pancreatic pseudocyst, Chronic alcohol abuse, Chronic pancreatitis, Hypokalemia - Discharge Information
[2016-10-18] MEDS ORDERED: Ondansetron 4 MG/2 ML SDV IVPUSH ONE (20:46)
[2016-10-18] MEDS ORDERED: Potassium Chloride 20 MEQ Tab.ER PO ONE (21:32)
[2016-10-18] MEDS: Morphine 2 MG/ML Syringe IVPUSH PRN (22:28)
[2016-10-18] MEDS: Sodium Chloride 0.9% 250 ML IV SCH (23:00)
[2016-10-19] MEDS ORDERED: Potassium Chloride 20 MEQ Tab.ER PO ONE (02:00)
[2016-10-19] MEDS: Morphine 2 MG/ML Syringe IVPUSH PRN ×4 (02:22→23:47)
[2016-10-19] MEDS: Sodium Chloride 0.9% 250 ML IV SCH ×3 (02:38→23:50)
--- NOTE | 2016-10-19 12:23 | PCM.SN ---
- Free Text/Narrative Note: Pt examined chart reviewed. Consult dictated.
[2016-10-19] MEDS: Sodium Chloride 0.9% 1,000 ML IV SCH (13:30)
[2016-10-19] MEDS ORDERED: Polyethylene Glycol 3350 Powder 238 GM Bot PO ONE (14:00)
[2016-10-19] MEDS ORDERED: Bisacodyl 5 MG Tab PO ONE (16:00)
[2016-10-20] MEDS: Ondansetron 4 MG/2 ML SDV IVPUSH PRN ×2 (00:21→07:56)
[2016-10-20] MEDS: Sodium Chloride 0.9% 10 ML Syringe FLUSH PRN ×2 (00:21→00:26)
--- NOTE | 2016-10-20 01:17 | CONS ---
DATE OF CONSULTATION: 10/19/2016 CHIEF COMPLAINT: Hematemesis and blood per rectum. HISTORY OF PRESENT ILLNESS: This is a 51-year-old white female, who has a longstanding history of alcohol abuse, chronic pancreatitis. Apparently, she was brought to the emergency department last evening with a complaint of difficulty ambulating, being dizzy, and hypotension. She apparently has had hematemesis for the past couple of days. In addition, she has noted some dark red blood per rectum as well. She has a history of chronic abdominal pain, but apparently she has been having some epigastric discomfort and burning sensation in her chest which she relates to her emesis. She claims to have had her last drink approximately a week ago. She is extremely poor historian, apparently was recently admitted in [facility] in [place] as well as [facility] in the past. MEDICATIONS: At the time of admission included, 1. Neurontin 80 mg t.i.d. 2. Vitamin D 100 mg p.o. daily. 3. Omeprazole 20 mg p.o. b.i.d. 4. Hydroxyzine 25 mg p.o. q.4 p.r.n. 5. Biotin 5000 mcg daily. 6. Ibuprofen 600 mg p.o. t.i.d. 7. Potassium chloride 20 mEq t.i.d. 8. Acetaminophen diphenhydramine two each at bedtime. 9. Lipase, protease and amylase one each t.i.d. 10.Meclizine 12.5 mg p.o. q.4 hours p.r.n. 11.Megace 40 mg suspension daily. 12.Protonix 40 mg after breakfast. 13.Carafate 1 g p.o. q.i.d. 14.Tramadol 50 mg p.o. q.6 hours. PAST MEDICAL HISTORY: Significant for history of hypertension, asthma, cholelithiasis, gastroesophageal reflux disease, and chronic pancreatitis as well as pancreatic pseudocyst. She has a history of colon polyp, history of dysfunctional uterine bleeding, history of arthritis and chronic back pain. She has had a stroke in the past as long as peripheral neuropathy. Has a history of anxiety and depression as well as the alcohol abuse. PAST SURGICAL HISTORY: Significant for cholecystectomy, upper endoscopy, knee surgery, which was a scope, and shoulder surgery. FAMILY HISTORY: Significant for dysfunctional uterine bleeding. The patient is currently an everyday pack smoker and admits to "three drinks per week." REVIEW OF SYSTEMS: GENERAL: Notable for weakness, fatigue. RESPIRATORY: Noncontributory. CARDIOVASCULAR: Some chest discomfort which is a burning sensation. ABDOMINAL: Significant for abdominal pain, bloody stool, diarrhea, and hematochezia, as well as nausea and vomiting. MUSCULOSKELETAL: Significant for back pain. SKIN: No issues. NEUROLOGIC: As noted in her history and physical. PHYSICAL EXAMINATION: GENERAL: This is a well-developed well-nourished female appearing in no acute distress. VITAL SIGNS: Temperature is 36.7, pulse rate is 90, blood pressure 117/87 with a respiratory rate of 18. HEENT: Grossly within normal limits. LUNGS: Clear to auscultation. HEART: Regular rate and rhythm. ABDOMEN: She had normal hypoactive bowel sounds. No marked tenderness elicited on my exam. LABORATORY DATA: Laboratory examination this morning is significant for a hemoglobin and hematocrit of 8.5 and 25.3, this is up from 5.9 and 17.2 on her admission. Her creatinine is 0.4. Calcium and magnesium are low. Her alkaline phosphatase is elevated at 146. Creatine kinase is 18. ALT and AST are essentially unremarkable. PT/INR has not been done. ASSESSMENT: Gastrointestinal bleeding, it is not clear to me at this point whether this is purely an upper gastrointestinal issue versus a lower one in combination or just an upper gastrointestinal issue with rapid transit time. In any event, I am recommending an upper and lower endoscopy. The patient will be scheduled for this tomorrow. Procedure and risks were explained to the patient, to include bleeding, infection, and perforation. The patient expresses understanding, and she asks us to proceed. In addition, I will be obtaining a PT/INR, a repeat hemoglobin and hematocrit later this afternoon. /[id number] /MODL
[2016-10-20] MEDS: Sodium Chloride 0.9% 1,000 ML IV SCH ×3 (04:54→20:10)
[2016-10-20] MEDS: Morphine 2 MG/ML Syringe IVPUSH PRN ×3 (08:31→20:38)
[2016-10-20] MEDS ORDERED: Propofol 200 MG/20 ML SDV IV ONE (10:40)
[2016-10-20] MEDS ORDERED: Lidocaine 2% 100 MG/5 ML Syringe IVPUSH ONE (10:40)
[2016-10-20] MEDS ORDERED: Midazolam 1 MG/ML 2 ML SDV IV ONE (10:40)
[2016-10-20] MEDS ORDERED: Pantoprazole 40 MG Vial IVPUSH ONE (11:16)
--- NOTE | 2016-10-20 11:21 | PCM.OPNOTE ---
- General Post-Op/Procedure Note Date of Surgery/Procedure: 10/20/16 Operative Procedure(s): egd. attempt at c scope Findings: severe duodenitis unable to do c scope due to poor prep Pre Op Diagnosis: gi bleed. Post-Op Diagnosis: duodenitis. poor colon prep Anesthesia Technique: MAC Primary Surgeon: Vick Castellanos Anesthesia Provider: Shabana Jacome Pathology: duodenum Complications: None Condition: Good Free Text/Narrative:: Intake & Output 10/19/16 10/20/16 10/20/16 22:59 06:59 14:59 Intake Total 1768 1041 Balance 1768 1041 see dictation
[2016-10-20] MEDS: Pantoprazole 80 MG in Sodium Chloride 0.9% 100 ML IV SCH ×2 (12:26→22:00)
--- NOTE | 2016-10-20 16:37 | OR ---
DATE OF OPERATION: 10/20/2016 SURGEON: Vick Castellanos MD PROCEDURE PERFORMED: Upper endoscopy and attempted colonoscopy. PREOPERATIVE DIAGNOSIS: Gastrointestinal bleed. POSTOPERATIVE DIAGNOSIS: Severe duodenitis as well as a poor colonic prep. INDICATIONS FOR PROCEDURE: This is a 51-year-old white female with a history of alcohol abuse and chronic pancreatitis who was admitted with hematemesis as well as bleeding per rectum. She has required 4 units of blood transfusion since her admission and was taken to the GI suite for upper and lower endoscopies with her permission. DESCRIPTION OF PROCEDURE: After an excellent IV sedation was administered and the bite block was inserted, the flexible endoscope was passed without difficulty down the patient's esophagus into the stomach. The stomach was insufflated, scope was passed through the pylorus, to the second portion of the duodenum and slowly withdrawn. The duodenum, 2nd portion was unremarkable. 1st portion demonstrated multiple punctate lesions which were necrotic in appearance. I did not delineate any definitive ulcer but this appears to be the cause of her bleeding. Multiple biopsies were taken. Stomach was essentially unremarkable and the esophagus was unremarkable. I saw no evidence on retroflex or evaluation of the esophagus of a variocele bleeding. Attention was then turned to the colon where a digital rectal exam was performed. Dark black blood was encountered. The flexible endoscope was inserted and we were unable to advance the scope due to the fact the patient still had black stool coming down from her colon, and despite efforts to irrigate the colon, we were unsuccessful. The colon was deflated, and the scope was removed. The patient was taken back to her room in good condition having tolerated the procedure well. /[id number] /MODL
--- NOTE | 2016-10-20 17:06 | PCM.SN ---
- Free Text/Narrative Note: egd findings discussed with the pt. would advance diet as tolerated. will sign off. please reconsult as needed.
[2016-10-20] MEDS: diphenhydrAMINE 50 MG/ML SDV IVPUSH PRN (17:28)
[2016-10-21] MEDS: Morphine 2 MG/ML Syringe IVPUSH PRN ×2 (00:48→06:28)
[2016-10-21] MEDS: Sodium Chloride 0.9% 10 ML Syringe FLUSH PRN ×3 (01:02→06:27)
[2016-10-21] MEDS: diphenhydrAMINE 50 MG/ML SDV IVPUSH PRN (01:38)
[2016-10-21] MEDS: Sodium Chloride 0.9% 1,000 ML IV SCH (04:13)
[2016-10-21] MEDS: Pantoprazole 80 MG in Sodium Chloride 0.9% 100 ML IV SCH ×2 (08:11→18:29)
[2016-10-21] MEDS ORDERED: Gabapentin 400 MG Cap PO SCH (09:00)
[2016-10-21] MEDS ORDERED: Non-Formulary Medication 1 Each (Potassium Chloride [Potassium Chloride] 20 MEQ) PO SCH (09:00)
[2016-10-21] MEDS ORDERED: Acetaminophen/Diphenhydramine 500-25 MG Tab PO PRN (09:49)
[2016-10-21] MEDS: Potassium Chloride 20 MEQ in Premix Bag 1 BAG IV SCH ×3 (10:45→21:46)
[2016-10-21] MEDS: Sucralfate 1 GM Tab PO SCH ×4 (10:47→21:26)
[2016-10-21] MEDS: Gabapentin 300 MG Cap PO SCH ×3 (10:47→21:30)
[2016-10-21] MEDS: Cyproheptadine 4 MG Tab PO PRN (11:16)
[2016-10-21] MEDS: traMADol 50 MG Tab PO PRN ×2 (11:16→19:10)
--- NOTE | 2016-10-21 11:40 | HP ---
ADMISSION DATE: 10/18/2016 History is from the old record as well as the ER notes. HISTORY: Mrs. Missy Elizondo is a 51-year-old woman with a history of chronic and acute alcoholism, alcoholic gastritis, hepatitis, polyneuropathy, and a pancreatitis. According the patient, she had been feeling poorly for the past couple of weeks. She states she has not had alcohol since a couple of weeks ago, and when she tried to drink it just did not taste good. She developed bloody stools and vomiting. She says the bright red are darker blood from the vomit and cane flume watchman blood from her rectum with dizziness and weakness. She came into the emergency room, was evaluated, and admitted for GI bleed. Consult was held with Dr. Castellanos who did an upper GI endoscopy showing a duodenal ulcer and she is now on IV Protonix. PAST MEDICAL HISTORY: Includes multiple admissions for alcoholism and alcoholic gastritis. She was recently hospitalized at [facility] with a pancreatic pseudocyst. She has had chronic back pain, chronic peripheral neuropathy, history of a TIA, forgetfulness with dementia of unclear origin. She has had admission at [facility] for alcoholism and depression. She has had arthroscopic knee surgery, shoulder surgery on the right shoulder post injury, bilateral knee arthroscopic surgery, and she is status post appendectomy. MEDICATIONS: She states she has been not very compliant with her medications at home but she states she has been takin. Ibuprofen 600 mg three times a day for pain. 2. Pantoprazole 40 mg daily. 3. Gabapentin. 4. Pancreatic enzymes. At home, med list also includes: 1. Sucralfate. 2. Supplemental potassium. 3. Tylenol PM. 4. Tramadol. 5. Hydroxyzine. 6. Thiamin. 7. Megace. 8. Meclizine. 9. Biotin. Compliance with these are likely significantly deficient. ALLERGIES: Listed include hydromorphone causing rash. Adhesive tapes and erythromycin base causing nausea and vomiting. HABITS: Heavy alcohol user. One pack-a-day smoker. FAMILY AND SOCIAL HISTORY: No major medical problems in parents. The patient has been and lives by herself in [place] and apparently has been on disability in the past. REVIEW OF SYSTEMS: GENERAL: No seizures or syncope. No recent infections or cold. No chest pain or palpitations. She does report she has had trigger point injections in the anterior sternal area for pain, the last one in [place] did not help. GI: See HPI for the GI symptoms. : No hematuria or UTI symptoms. MUSCULOSKELETAL: No joint inflammation, swelling, or skin rash. She does report chronic back pain. PHYSICAL EXAMINATION: GENERAL: She is pale and obviously quite forgetful to history taking. VITAL SIGNS: Blood pressure 91/53, pulse 75 and regular, respirations 18, O2 saturation 100% on room air, temperature 97.9. SKIN: Shows pallor. She has healed excoriations over her legs, no rashes noted. HEENT: Shows mouth to be dry. Pupils are equal and reactive. NECK: Supple. LUNGS: Clear to the bases. HEART: Regular without murmur, rub, or gallop. ABDOMEN: Normal bowel sounds. Soft. She does report tenderness and fullness in the epigastric area. No mass guarding or rebound. No organomegaly is noted. No lower abdominal tenderness. EXTREMITIES: Warm well perfused. She has good pedal pulses. No edema. NEUROLOGIC: Reveals her to be quite forgetful. Motor exam is symmetric. Gait is not tested. LABORATORY DATA: After previous blood transfusions, currently hemoglobin is 8.1 g, white count 4500, and platelets 104. Sodium 138, potassium 2.8, BUN 8, and creatinine 0.6. Urinalysis shows 10 and 20 white cells. ASSESSMENT: 1. Upper gastrointestinal bleed, documented duodenal ulcer. 2. Possible lower gastrointestinal bleed, colonoscopy unable due to poor prep. 3. Acute and chronic alcoholism. 4. History of pancreatitis with pancreatic pseudocyst. 5. Chronic low back pain. 6. Hypokalemia. PLAN: She has been seen in consult and scoped by Dr. Castellanos who has signed off on her care now. I will continue the IV Protonix, switch her from clear liquids to a regular diet. Plan is to convert her over to oral medications. This patient will require an estimated additional 48 hour hospital stay. /[id number] RO/QUANGL
[2016-10-21] MEDS: PROTEASE PO SCH ×2 (12:59→17:03)
[2016-10-21] MEDS: AMYLASE PO SCH ×2 (12:59→17:03)
[2016-10-21] MEDS: LIPASE PO SCH ×2 (12:59→17:03)
[2016-10-21] MEDS ORDERED: Acetaminophen/Diphenhydramine 500-25 MG Tab PO SCH (21:00)
[2016-10-21] MEDS ORDERED: Nicotine 21 MG/24 Hr Patch TRDERM SCH (21:00)
[2016-10-21] MEDS: Potassium Chloride 8 MEQ Tab.ER PO SCH (21:28)
[2016-10-22] MEDS: Cyproheptadine 4 MG Tab PO PRN (00:43)
[2016-10-22] MEDS: traMADol 50 MG Tab PO PRN ×3 (03:40→20:15)
[2016-10-22] MEDS: Pantoprazole 80 MG in Sodium Chloride 0.9% 100 ML IV SCH ×2 (03:56→03:57)
[2016-10-22] MEDS: AMYLASE PO SCH ×3 (07:17→17:34)
[2016-10-22] MEDS: Sucralfate 1 GM Tab PO SCH ×4 (07:17→20:10)
[2016-10-22] MEDS: PROTEASE PO SCH ×3 (07:17→17:34)
[2016-10-22] MEDS: LIPASE PO SCH ×3 (07:17→17:34)
[2016-10-22] MEDS: Gabapentin 300 MG Cap PO SCH ×3 (09:02→20:12)
[2016-10-22] MEDS: Potassium Chloride 8 MEQ Tab.ER PO SCH ×2 (09:02→20:14)
--- NOTE | 2016-10-22 09:46 | PN ---
DATE SEEN: 10/22/2016 HISTORY: Missy is a 51-year-old woman who was admitted with an upper GI bleed 4 days ago. She underwent upper GI endoscopy which showed a duodenal ulcer as the apparent source of bleeding. She was transfused and started on IV Protonix. Her oral ibuprofen was discontinued. She states that she is feeling some better. She ate well for supper last night and ate essentially a full breakfast this morning with no significant abdominal pain. She does still complain of full epigastric pressure sensation, worse if she lies completely supine. Missy states that she has difficulty with swallowing pills and with liquids that have a strong odor or taste to them. PHYSICAL EXAMINATION: VITAL SIGNS: Blood pressure 96/62, pulse 68 and regular, respirations 18, temperature 97.7, O2 saturation 100% on room air. SKIN: Anicteric, warm, and dry without rash or excoriations over her lower extremities. HEENT: Shows her mouth to be dry. LUNGS: Clear to the bases. HEART: Regular without murmur or gallop. ABDOMEN: Normal bowel sounds, soft, nontender, and she has minimal tenderness in the epigastric area. No mass guarding or rebound tenderness. No lower abdominal tenderness. EXTREMITIES: No edema. LABORATORY DATA: White count 5000, hemoglobin 8.7, this is up from 8.1 yesterday; MCV 93; and platelets 121, this is up from 104 yesterday. Electrolytes are normal. Creatinine 0.5. Urinalysis is clear. ASSESSMENT: 1. Upper gastrointestinal bleed, apparently stabilized. 2. Acute and chronic alcoholism. 3. Hypokalemia, resolved. 4. Anemia due to blood loss and likely additional bone marrow suppression. 5. Chronic low back pain. PLAN: We will convert her IV pantoprazole to oral. We will continue to sucralfate, avoidance of ibuprofen. She will use tramadol p.r.n. pain and may supplement with occasional Tylenol. Continue regular diet, ambulation, and anticipate discharge in 24 hours. /[id number] RO/QUANGL
[2016-10-22] MEDS ORDERED: Pantoprazole 40 MG Tab.CR PO SCH (10:30)
[2016-10-22] MEDS: Pantoprazole 40 MG Tab.CR PO SCH (11:33)
[2016-10-22] MEDS: Ferrous Sulfate 325 MG Tab PO SCH (11:39)
[2016-10-22] MEDS: SIMETHICONE 125 MG PO PRN (16:44)
[2016-10-22] MEDS ORDERED: Nicotine 21 MG/24 Hr Patch TRDERM SCH (21:00)
[2016-10-23] MEDS: SIMETHICONE 125 MG PO PRN (00:28)
[2016-10-23] MEDS: Cyproheptadine 4 MG Tab PO PRN (00:37)
[2016-10-23] MEDS: traMADol 50 MG Tab PO PRN (05:19)
[2016-10-23] MEDS ORDERED: Pantoprazole 40 MG Tab.CR PO SCH (06:00)
[2016-10-23] MEDS: AMYLASE PO SCH ×2 (07:28→13:20)
[2016-10-23] MEDS: Sucralfate 1 GM Tab PO SCH ×2 (07:28→13:19)
[2016-10-23] MEDS: PROTEASE PO SCH ×2 (07:28→13:20)
[2016-10-23] MEDS: LIPASE PO SCH ×2 (07:28→13:20)
[2016-10-23 07:31] VITALS: BP 95/68
[2016-10-23] MEDS: Gabapentin 300 MG Cap PO SCH (09:49)
[2016-10-23] MEDS: Potassium Chloride 8 MEQ Tab.ER PO SCH (09:49)
--- NOTE | 2016-10-23 10:13 | DISCH ---
DISCHARGE DATE: 10/23/2016 PRIMARY FINAL DIAGNOSIS: Upper gastrointestinal bleed secondary to duodenal ulcer. OTHER DIAGNOSES: Severe blood loss anemia, hypokalemia, pancreatitis with history of pseudocyst, acute and chronic alcoholism. OPERATIONS: EGD. COMPLICATIONS: None. SUMMARY: Missy is a 51-year-old woman who came in with vomiting blood and dark stool. She was found to be anemic with a hemoglobin 6.9 g. EGD was accomplished by Dr. Castellanos and showed a duodenal ulcer. The patient was transfused red blood cells and started on IV Protonix and oral Carafate. Her hypokalemia was replaced and she was started on oral iron. She stabilized and hemoglobin climbed to 8.7 prior to discharge. She is discharged to home in improved condition to continue medications as follows; 1. Tramadol 50 mg b.i.d. p.r.n. 2. To supplement extra-strength Tylenol. 3. Potassium chloride 8 mEq p.o. daily. 4. Protonix 40 mg daily. 5. Gabapentin 300 mg t.i.d. 6. Iron sulfate 325 mg daily. 7. Pancreatic enzymes one t.i.d. before meals. She is asked to see Dr. Aguilar in followup in about 10 days and call should there be questions or problems prior to that time. She is instructed to avoid alcohol, take no more of her ibuprofen or NSAIDs or aspirin and increase the protein and calories in her diet. /[id number] ZEUS/GERRY
[2016-10-23] MEDS: Ferrous Sulfate 325 MG Tab PO SCH (13:20)
[2016-10-23] MEDS: Pantoprazole 40 MG Tab.CR PO SCH (13:20)
--- NOTE | 2016-10-25 10:25 | CR ---
INDICATION: Hemoptysis. CHEST, AP: I do not see any infiltrates, effusions, or masses identified at this time. Heart and mediastinal structures essentially normal. MTDD
== END 2016-10-23 11:40 | disposition home or self-care (01) | DRG 378 ==
LOC: FB.ED 19:16 → FB.MS 21:34
PROVIDERS: ADMIT Emergency Medicine; ATTEND Surgery
PROC: 30233N1 Transfusion of Nonautologous Red Blood Cells into Peripheral Vein, Percutaneous Approach (ICD-10-PCS; 2016-10-18)
PROC: 30233N1 Transfusion of Nonautologous Red Blood Cells into Peripheral Vein, Percutaneous Approach (ICD-10-PCS; 2016-10-19)
PROC: 0DB98ZX Excision of Duodenum, Via Natural or Artificial Opening Endoscopic, Diagnostic (ICD-10-PCS; principal; 2016-10-20)
PROC: 0DJD7ZZ Inspection of Lower Intestinal Tract, Via Natural or Artificial Opening (ICD-10-PCS; 2016-10-20)
DX: K26.4 Chronic or unspecified duodenal ulcer with hemorrhage (principal); K86.1 Other chronic pancreatitis; F10.20 Alcohol dependence, uncomplicated; F17.210 Nicotine dependence, cigarettes, uncomplicated; D50.0 Iron deficiency anemia secondary to blood loss (chronic); E87.6 Hypokalemia; K21.9 Gastro-esophageal reflux disease without esophagitis; M19.90 Unspecified osteoarthritis, unspecified site; M54.9 Dorsalgia, unspecified; G89.29 Other chronic pain; Z86.73 Personal history of transient ischemic attack (TIA), and cerebral infarction without residual deficits; F41.9 Anxiety disorder, unspecified; F32.9 Major depressive disorder, single episode, unspecified; G62.9 Polyneuropathy, unspecified; K62.5 Hemorrhage of anus and rectum; R53.1 Weakness; K92.0 Hematemesis; Z87.898 Personal history of other specified conditions; Z88.1 Allergy status to other antibiotic agents; Z88.8 Allergy status to other drugs, medicaments and biological substances; Z91.048 Other nonmedicinal substance allergy status; F03.90 Unspecified dementia, unspecified severity, without behavioral disturbance, psychotic disturbance, mood disturbance, and anxiety
CPT/HCPCS: 36415; 71010; 80053; 81001; 82150; 82550; 83605; 83690; 83735; 84484; 85025; 86140; 86850; 86900; 86901; 86920 ×2; 86922 ×2; 87086; 93005; 96360; 96361; 96374; 99284; 99285; J2405; J7040 ×2; J7050; 36430; 80048; 82272; 85014; 85018; 85610; 88305; A9270-GY; C9113; J1200; J2250; J2270; J2704; J3480; J7030; J7120; P9016